=== PATIENT | female | born 1935 | race Caucasian/White ===

== ENCOUNTER 2017-06-17 08:45 | Inpatient (IN) | payer MEDICARE, OTHER ==
[~2017-06-17] VITALS: Ht 157.5 cm; Wt 68.0 kg
[~2017-06-17 08:45] MED LIST: ACET500C43 PO; CITA20TA11 PO; LISI-694 PO; SIMV20TA6 PO
[2017-06-17 08:49] VITALS: BP_SYST 194
--- NOTE | 2017-06-17 08:55 | NUR ---
Pt ambulated to bed 8, Dr Boyd is at bedside examining patient.
--- NOTE | 2017-06-17 08:57 | NUR ---
PT AAOX4, ABLE TO VERBALIZE NEEDS. PT STATES WHILE AT HOME, SHE FELL OFF THE BOTTOM STAIR AND LANDED ON HER LEFT SHOULDER. PT DENIES HITTING HEAD DURING FALL. PT C/O 9/10 PAIN TO LEFT SHOULDER AND HAS DIFFICULTY MOVING LEFT ARM AT THIS TIME. NO OTHER COMPLAINTS/INJURIES PER PT OR NOTED.
--- NOTE | 2017-06-17 08:59 | NUR ---
ER at bedside examining patient.
[2017-06-17] MEDS ORDERED: MORPHINE 2 MG/ML INJ. SYRINGE IVP ONE (09:00)
[2017-06-17] MEDS ORDERED: ONDANSETRON HCL 4 MG/2 ML VIAL IVP ONE (09:00)
[2017-06-17 09:27] LABS: BASOPHILS % (AUTO) 0.3 % (0.0-2.0); EOSINOPHILS % (AUTO) 0.1 % (0.0-4.0); HEMATOCRIT 37.8 % (36-48); HEMOGLOBIN 12.1 g/dL (12.0-16.0); LYMPHOCYTES # (AUTO) 1.8 K/uL (1.0-5.5); LYMPHOCYTES % (AUTO) 11.1 % (20.5-51.5); MEAN CORPUSCULAR HEMOGLOBIN 27 pg (27-31); MEAN CORPUSCULAR HGB CONC 32 % (32-36); MEAN CORPUSCULAR VOLUME 84 fL (79.0-98.0); MONOCYTES # (AUTO) 0.7 K/uL (0.0-1.0); MONOCYTES % (AUTO) 4.3 % (1.7-9.3); PLATELET COUNT (AUTO) 246 K/uL (130-430); RED CELL DISTRIBUTION WIDTH 15.1 % (9.0-15.0); WHITE BLOOD COUNT (AUTO) 16.5 K/uL (4.8-10.8)
[2017-06-17 09:44] LABS: INR 0.9 (0.8-1.2); PROTHROMBIN TIME 9.6 SECS (9.5-12.5)
[2017-06-17 09:52] LABS: BILIRUBIN,URINE NEGATIVE (NEGATIVE); BLOOD, URINE NEGATIVE (NEGATIVE); CLARITY/URINE SL HAZY (CLEAR); COLOR,URINE YELLOW (YELLOW); GLUCOSE,URINE NEGATIVE (NEGATIVE); KETONES,URINE TRACE (NEGATIVE); LEUKOCYTE ESTERASE ,URINE 1+ (NEGATIVE); NITRITE, URINE NEGATIVE (NEGATIVE); PH,URINE 5.5 (5.0-8.0); PROTEIN URINE 2+ (NEGATIVE); UROBILINOGEN,URINE 0.2 (0.2-1.0)
[2017-06-17 09:52] LABS: NEUTROPHILS % (AUTO) 84.2 % (40.0-70.0)
[2017-06-17 09:59] LABS: BACTERIA,URINE FEW /HPF (None Seen); MUCUS,URINE 1+ /LPF (None Seen); RBC,URINE 0-3 /HPF (0-3)
[2017-06-17 10:16] LABS: ANION GAP 12 (5-15); CALCIUM 9.6 mg/dL (8.4-11.0); CHLORIDE 105 mmol/L (98-107); CREATININE 1.47 mg/dL (0.55-1.30); GLUCOSE 116 mg/dL (70-99); POTASSIUM 5.1 mmol/L (3.5-5.1); SODIUM SERUM 137 mmol/L (136-145); UREA NITROGEN, BLOOD 45 mg/dL (8-21)
[2017-06-17 10:22] LABS: ALANINE AMINOTRANSFERASE 12 U/L (12-78); ALBUMIN 3.5 g/dL (3.4-4.8); ASPARTATE AMINOTRANSFERASE 11 U/L (10-37); TOTAL BILIRUBIN 0.4 mg/dL (0.0-1.0)
[2017-06-17] MEDS ORDERED: BACL10TA PO (10:42)
[2017-06-17] MEDS ORDERED: MED4 PO (10:42)
--- NOTE | 2017-06-17 11:16 | NUR ---
Patient will be admitted to care of DR EAST. Admitted to MEDSURG unit. Will go to room 124A. Belongings list completed. Summary report printed. Report will be given at bedside.
--- NOTE | 2017-06-17 11:39 | NUR ---
Admission Note Received patient from ER with diagnosis of LEFT HUMERAL FRACTURE . Initial Plan of Care discussed-patient verbalized understanding. Family at bedside. Oriented to room, call light, pain management and safety.
[2017-06-17 11:40] VITALS: BP_SYST 186
[2017-06-17] MEDS ORDERED: cloNIDine HCL 0.1 MG TABLET PO PRN (12:00)
[2017-06-17] MEDS ORDERED: MAGNESIUM SULFATE 50 ML IV PRN (12:00)
[2017-06-17] MEDS ORDERED: ACETAMINOPHEN 325 MG TABLET PO PRN (12:00)
[2017-06-17] MEDS ORDERED: DOCUSATE SODIUM 100 MG CAPSULE PO PRN (12:00)
[2017-06-17] MEDS ORDERED: POTASSIUM CHLORIDE 20 MEQ TAB.PRT.SR PO PRN (12:00)
[2017-06-17] MEDS ORDERED: ONDANSETRON HCL 4 MG/2 ML VIAL IVP PRN (12:00)
[2017-06-17] MEDS ORDERED: methylPREDNISolone 4 MG TABLET PO SCH (12:00)
[2017-06-17] MEDS ORDERED: MORPHINE 2 MG/ML INJ. SYRINGE IVP PRN (12:00)
[2017-06-17] MEDS ORDERED: LORazepam 2 MG/ML VIAL IVP PRN (12:00)
[2017-06-17] MEDS ORDERED: MUPIROCIN 2% TOPICAL OINTMENT 22 GM NS PRN (12:00)
--- NOTE | 2017-06-17 12:00 | NUR ---
TRANSFER OF CARE REPORT IS RECEIVED FROM ADMISSION NURSE AND CARE IS ENDORSED TO MYSELF. PT IS RECEIVED AWAKE, ALERT, AND ORIENTED X4. PT COMPLAINS OF PAIN IN THE LEFT ARM. LEFT ARM IS CURRENTLY IN AN ARM SLING. INFORMATION WAS UPDATED ON WHITE BOARD AND PT WAS SHOWN HOW TO CONTACT THE NURSING STAFF. DAUGHTER IS TAKING HER PERSONAL BELONGING HOME. DR. EAST HAS SEEN PT AND HAS DONE THE MEDREC. BED IS AT LOWEST POSITION, CALL LIGHT WITHIN REACH, TWO SIDE RAILS UP, BED ALARM IS ON. WILL CONTINUE TO MONITOR.
[2017-06-17] MEDS: METOPROLOL TARTRATE 25 MG TABLET PO SCH ×2 (12:22→21:44)
[2017-06-17] MEDS: MORPHINE 2 MG/ML INJ. SYRINGE IVP PRN ×3 (12:59→21:48)
[2017-06-17] MEDS ORDERED: cefTRIAXone 1 GM in D5W 50 ML IV ONE (13:00)
--- NOTE | 2017-06-17 13:00 | NUR ---
PRN MORPHINE GAVE PT MORPHINE FOR PAIN LEVEL OF 7 OUT 10. ADVISED PT OF INCREASE RISK FOR FALLS AND THE NEED TO USE CALL LIGHT IF SHE WANTS TO GET OUT OF BED. WILL CONTINUE TO MONITOR.
[2017-06-17] MEDS: NACL 0.9% 1,000 ML IV SCH (13:04)
--- NOTE | 2017-06-17 13:50 | NUR ---
ORTHO CONSULT WAS CALLED TO DR DIAZ, RE: L HUMERUS NECK FRACTURE. DR DIAZ WILL CALL BACK FOR HE KNOWS THAT IS IS NOT THE CAPTAIN/AIRLINE PILOT ORTHO THIS PM
[2017-06-17 14:20] VITALS: BP_SYST 140
--- NOTE | 2017-06-17 14:20 | NUR ---
ROUNDS LATE ENTRY DUE TO PT CARE: PT IS AWAKE AND ALERT. NO SIGNS OR SYMPTOMS OF DISTRESS OR SOB NOTED. PT STATES CURRENT PAIN LEVEL IS AT A 4 OUT OF 10 AND IT IS TOLERABLE. BLOOD PRESSURE IS GOING DOWN AND IS CURRENTLY AT 140/78. CURRENT NEEDS ARE MET. BED IS AT LOWEST POSITION, CALL LIGHT IS WITHIN REACH, TWO SIDE RAILS UP, BED ALARM IS ON. WILL CONTINUE TO MONITOR.
--- NOTE | 2017-06-17 16:15 | NUR ---
ROUNDS LATE ENTRY DUE TO PT CARE: PT IS SLEEPING BUT IS EASILY AWAKEN. NO SIGNS OR SYMPTOMS OF DISTRESS OR SOB NOTED. CURRENT NEEDS ARE MET. BED IS AT LOWEST POSITION, CALL LIGHT IS WITHIN REACH, TWO SIDE RAILS UP, BED ALARM IS ON. WILL CONTINUE TO MONITOR.
[2017-06-17] MEDS ORDERED: LEVO100T9 PO (17:37)
[2017-06-17 18:39] VITALS: BP_SYST 146
--- NOTE | 2017-06-17 18:53 | NUR ---
CLOSING NOTE PT IS RESTING IN BED. NO SIGNS OR SYMPTOMS OF DISTRESS OR SOB NOTED. PT IS COMPLAINING OF PAIN IN LEFT ARM WHEN SHE MOVES IT, I ADVISED PT THAT PAIN MEDICATION IS NOT DUE YET AND SHE STATED THAT IT WAS OKAY AND WOULD WAIT. CURRENT NEEDS ARE MET. BED IS AT LOWEST POSITION, CALL LIGHT WITHIN REACH, TWO SIDE RAILS UP. WILL CONTINUE TO MONITOR UNTIL CARE IS ENDORSED TO BELT SANDER STONE NURSE.
--- NOTE | 2017-06-17 19:20 | NUR ---
RN Opening Note: Report received from GEORGE Childs. Pt presented in NAD, sitting up in bed. Arm sling noted on LUE. Pt watching TV. Call light within reach, bed in lowest position with brake on. Fall precautions in effect. Pt advised to call for help prior to getting OOB. Pt agreed. Will continue to monitor.
[2017-06-17 20:30] VITALS: BP_SYST 135
--- NOTE | 2017-06-17 20:30 | NUR ---
RN Note: VSS. Assessment completed. IVF infusing without problems. Site without s/s of infiltration. Pt c/o pain in left shoulder 8/10 on a 0 -10 scale. Fall precautions in effect. Will continue to monitor.
[2017-06-17] MEDS ORDERED: BACLOFEN 10 MG TABLET PO SCH (21:00)
[2017-06-17] MEDS ORDERED: ZOLPIDEM TARTRATE 5 MG TABLET PO PRN (21:00)
--- NOTE | 2017-06-17 21:00 | NUR ---
IV infiltration: Pt got OOB without calling for assistance. Back in bed now. IV infiltrated. IV removed with angiocath intact. Restarted on first attempt in LFA 20g. IVF resumed without problems. Pt tomas procedure well. Reinterated need for pt to call for assistance and wait for help getting OOB. Will continue to monitor.
[2017-06-17] MEDS: DIAMOX SEQUELS 500 MG CAPSULE.SA PO SCH (21:40)
[2017-06-17] MEDS: HEPARIN SODIUM,PORCINE 5000 UNITS/ML VIAL SUBCUT SCH (21:42)
--- NOTE | 2017-06-17 23:30 | NUR ---
RN Note: Pt resting comfortably with eyes closed. Resp even and unlabored. NAD. Will continue to monitor.
[2017-06-18 00:12] VITALS: BP_SYST 122
--- NOTE | 2017-06-18 01:28 | NUR ---
RN Note: Pt resting without distress. Resp easy and even. IVF infusing well. Site benign. Will continue to monitor.
--- NOTE | 2017-06-18 02:40 | NUR ---
RN note: Pt discovered OOB by herself. Pt cautioned to call for help so that she won't fall again. Pt stated she didn't want to bother us. Pt told this is why we are here, to help. Pt escorted to bathroom and back. Will continue to closely monitor.
[2017-06-18] MEDS: NACL 0.9% 1,000 ML IV SCH (03:30)
[2017-06-18 06:05] LABS: ANION GAP 9 (5-15); CALCIUM 7.4 mg/dL (8.4-11.0); CHLORIDE 110 mmol/L (98-107); CREATININE 1.37 mg/dL (0.55-1.30); GLUCOSE 96 mg/dL (70-99); POTASSIUM 4.3 mmol/L (3.5-5.1); SODIUM SERUM 142 mmol/L (136-145); UREA NITROGEN, BLOOD 39 mg/dL (8-21)
--- NOTE | 2017-06-18 06:17 | NUR ---
RN Closing Note: Pt asleep without distress. IvF continues to infuse without problems. Site benign. Appears comfortable.Call light within reach. Bed in lowest position with brake on. Belongings close by. Will endorse pt to oncoming shift for continuity of care. .
[2017-06-18 06:36] LABS: BASOPHILS % (AUTO) 0.5 % (0.0-2.0); EOSINOPHILS # (AUTO) 0.2 K/uL (0.0-0.4); EOSINOPHILS % (AUTO) 1.8 % (0.0-4.0); HEMATOCRIT 32.1 % (36-48); LYMPHOCYTES # (AUTO) 2.4 K/uL (1.0-5.5); LYMPHOCYTES % (AUTO) 25.8 % (20.5-51.5); MEAN CORPUSCULAR HEMOGLOBIN 27 pg (27-31); MEAN CORPUSCULAR HGB CONC 31 % (32-36); MEAN CORPUSCULAR VOLUME 86 fL (79.0-98.0); MONOCYTES # (AUTO) 0.9 K/uL (0.0-1.0); MONOCYTES % (AUTO) 9.8 % (1.7-9.3); NEUTROPHILS # (AUTO) 5.6 K/uL (1.8-7.7); NEUTROPHILS % (AUTO) 62.1 % (40.0-70.0); PLATELET COUNT (AUTO) 195 K/uL (130-430); RED BLOOD CELL COUNT(AUTO) 3.75 MIL/uL (4.2-6.2); RED CELL DISTRIBUTION WIDTH 16.1 % (9.0-15.0)
[2017-06-18 06:50] LABS: WHITE BLOOD COUNT (AUTO) 9.1 K/uL (4.8-10.8)
--- NOTE | 2017-06-18 07:45 | NUR ---
OPENING NOTE PATIENT AWAKE ALERT, IN NO DISTRESS, DENIES ANY CHEST PAIN/ SHORTNESS OF BREATH. CALL LIGHT WITHIN REACH. SAFETY PRECAUTIONS OBSERVED. WILL CONTINUE TO MONITOR.
[2017-06-18 08:00] VITALS: BP_SYST 147
--- NOTE | 2017-06-18 08:37 | NUR ---
Nutrition Update Akshat Scale 18 noted. Pt admitted for Left Humeral Fracture Diet: Cardiac Low Cholesterol Low Fat 2gm Na diet BMI: 27.4 kg/m2 RD to follow per nutrition care standards.
[2017-06-18] MEDS ORDERED: CITALOPRAM HYDROBROMIDE 20 MG TABLET PO SCH (09:00)
[2017-06-18] MEDS ORDERED: cefTRIAXone 1 GM in D5W 50 ML IV SCH (09:00)
[2017-06-18] MEDS ORDERED: SIMVASTATIN 20 MG TABLET PO SCH (09:00)
[2017-06-18] MEDS: METOPROLOL TARTRATE 25 MG TABLET PO SCH (09:39)
[2017-06-18] MEDS: DIAMOX SEQUELS 500 MG CAPSULE.SA PO SCH (09:41)
[2017-06-18] MEDS: HEPARIN SODIUM,PORCINE 5000 UNITS/ML VIAL SUBCUT SCH (09:43)
--- NOTE | 2017-06-18 10:00 | NUR ---
PATIENT RESTING: Patient resting quietly. No acute distress noted. Vital signs within normal range.
[2017-06-18] MEDS ORDERED: METH4TAB3 PO (11:42)
[2017-06-18] MEDS ORDERED: TRAM50TA92 PO (11:42)
[2017-06-18] MEDS ORDERED: DOCU-144 PO (11:42)
[2017-06-18] MEDS ORDERED: NITR-85 PO (11:44)
[2017-06-18 11:56] VITALS: BP_SYST 107
--- NOTE | 2017-06-18 11:56 | NUR ---
DCP. ELINOR TERRAZAS 1935 ADMITTED TO [facility] ON 06/17/2017. DX MECHANICAL FALL. LEFT HUMERAL HEAD AND NECK FRACTURE. SLING IN PLACED. DTR CHARAN TERRAZAS AT BEDSIDE. PT. IS IND WITH ADLS PRIOR TO ADMISSION. NO DME. AWAITING DR DIAZ FOR EVAL. DCP. PLAN TO DC HOME WITH DTR. FF UP WITH ORTHO AND PCP. PT. DECLINED CANE. SHANKAR QUIÑONES RN/ T [phone]
[2017-06-18 11:59] VITALS: BP_SYST 168
--- NOTE | 2017-06-18 12:30 | NUR ---
PRN MED BLOOD PRESSURE WAS -168/77 PRN CATAPRESS GIVEN AT THIS TIME
--- NOTE | 2017-06-18 14:20 | NUR ---
D/C Patient Patient given medication reconciliation form and D/C instructions. Exit Care provided. Patient verbalized understanding. MD discussed with patient the results and treatment provided. Wayne left on wheelchair with product marketing analyst. Patient in stable condition, ID band removed. IV catheter removed, intact and dressing applied, no active bleeding. Rx given. Patient educated on pain management. All belongings sent with patient.
== END 2017-06-18 14:20 | disposition home or self-care (01) | DRG 871 ==
LOC: SED 08:45 → SMU 10:39
PROVIDERS: ADMIT General Practice; ATTEND Internal Medicine Hospice and Palliative Medicine
DX: A41.9 Sepsis, unspecified organism (principal); N17.0 Acute kidney failure with tubular necrosis; N39.0 Urinary tract infection, site not specified; S42.212A Unspecified displaced fracture of surgical neck of left humerus, initial encounter for closed fracture; W01.0XXA Fall on same level from slipping, tripping and stumbling without subsequent striking against object, initial encounter; I10 Essential (primary) hypertension; H40.9 Unspecified glaucoma; F17.210 Nicotine dependence, cigarettes, uncomplicated; H54.62 Unqualified visual loss, left eye, normal vision right eye; E78.00 Pure hypercholesterolemia, unspecified; Y93.01 Activity, walking, marching and hiking; Z85.528 Personal history of other malignant neoplasm of kidney; Y92.89 Other specified places as the place of occurrence of the external cause; Y99.8 Other external cause status; Z90.5 Acquired absence of kidney; Z79.899 Other long term (current) drug therapy
CPT/HCPCS: 36415; 73030; 80048; 80053; 81000-TC; 83735-TC; 85025; 85610-TC; 85730-TC; 87086; 96374; 96375; 99285; J0696; J1644; J2270; J2405; J7030; J7060

== ENCOUNTER 2018-07-13 16:52 | Emergency (ER) | payer OTHER ==
[~2018-07-13] VITALS: Ht 157.5 cm; Wt 72.6 kg
[~2018-07-13 16:52] MED LIST changes: +BACL10TA PO; -CITA20TA11 PO; +CITA20TA16 PO; +DOCU-144 PO; +LEVO100T9 PO; +MED4 PO; +METH4TAB3 PO; +NITR-85 PO; +TRAM50TA92 PO
[2018-07-13 16:55] VITALS: BP_SYST 177
--- NOTE | 2018-07-13 16:55 | NUR ---
BROUGHT IN BY [facility], PLACED IN BED #1 AND TRIAGED. REPORT GIVEN TO ITZEL
--- NOTE | 2018-07-13 17:15 | NUR ---
Pt states she fell off a stool at home and hurt her right shoulder. Pt states that she also had an injury on left shoulder that has not completely healed. Pulses present bilaterally, no obvious deformities noted. Pt arrive with sling in place and IV 18G on left hand. No other complaints or injuries per pt or noted.
--- NOTE | 2018-07-13 17:30 | NUR ---
ER Dr. Ramirez at bedside examining patient.
[2018-07-13] MEDS ORDERED: DIPHENHYDRAMINE INJ 50 MG/ML VIAL IVP ONE (17:45)
[2018-07-13] MEDS ORDERED: MORPHINE 2 MG/ML INJ. SYRINGE IVP ONE (17:45)
[2018-07-13] MEDS ORDERED: MORPHINE 4 MG/ML INJ. SYRINGE ONE (18:23)
--- NOTE | 2018-07-13 18:50 | NUR ---
Applied sling to right arm after medicating and provided education. Pt and family verbalize understanding and return demonstration.
[2018-07-13 19:02] VITALS: BP_SYST 150
--- NOTE | 2018-07-13 19:02 | NUR ---
Patient given written and verbal discharge instructions and verbalizes understanding. ER MD discussed with patient the results and treatment provided. Patient in stable condition. ID arm band removed. IV catheter removed intact and dressing applied, no active bleeding. Rx of norco given. Patient educated on pain management and to follow up with PMD. Pain Scale 3/10. Opportunity for questions provided and answered. Medication side effect fact sheet provided.
--- NOTE | 2018-07-13 20:19 | NUR ---
Note undone in EDM - 07/13/18 at 2020 by MARY ANN Patient given written and verbal discharge instructions and verbalizes understanding. ER MD discussed with patient the results and treatment provided. Patient in stable condition. ID arm band removed. IV catheter removed intact and dressing applied, no active bleeding. Rx of jaylyn given. Patient educated on pain management and to follow up with PMD. Pain Scale 3/10. Opportunity for questions provided and answered. Medication side effect fact sheet provided.
== END 2018-07-13 19:02 | disposition home or self-care (01) ==
LOC: SED 16:52
DX: S42.291A Other displaced fracture of upper end of right humerus, initial encounter for closed fracture (principal); E07.9 Disorder of thyroid, unspecified; E78.00 Pure hypercholesterolemia, unspecified; I10 Essential (primary) hypertension; Z79.899 Other long term (current) drug therapy; Z85.528 Personal history of other malignant neoplasm of kidney; W17.89XA Other fall from one level to another, initial encounter; Y93.89 Activity, other specified; Y92.89 Other specified places as the place of occurrence of the external cause; Y99.8 Other external cause status
CPT/HCPCS: 73030; 96374; 96375; 99283; J1200; J2270

== ENCOUNTER 2020-03-28 14:45 | Emergency (ER) | payer OTHER ==
[~2020-03-28] VITALS: Ht 157.5 cm; Wt 68.0 kg
[~2020-03-28 14:45] MED LIST changes: +SIMV-43 PO; -SIMV20TA6 PO
[2020-03-28 15:00] VITALS: BP_SYST 134
[2020-03-28 17:18] VITALS: BP_SYST 134
== END 2020-03-28 17:19 | disposition home or self-care (01) ==
LOC: SED 14:45
DX: S00.83XA Contusion of other part of head, initial encounter (principal); E78.00 Pure hypercholesterolemia, unspecified; I10 Essential (primary) hypertension; E07.9 Disorder of thyroid, unspecified; Z79.899 Other long term (current) drug therapy; W01.0XXA Fall on same level from slipping, tripping and stumbling without subsequent striking against object, initial encounter; Y93.89 Activity, other specified; Y92.89 Other specified places as the place of occurrence of the external cause; Y99.8 Other external cause status
CPT/HCPCS: 70450-TC; 76376; 99284

== ENCOUNTER 2021-06-09 08:04 | Observation (INO) | payer OTHER, SELFPAY ==
[~2021-06-09] VITALS: Ht 162.6 cm; Wt 55.8 kg
[~2021-06-09 08:04] MED LIST changes: -LISI-694 PO; +LISI10TA30 PO
[2021-06-09 08:17] VITALS: BP_SYST 145
--- NOTE | 2021-06-09 08:24 | NUR ---
Pt to bed 3. Pt c/o falling last night due to losing her balance. States she normally uses a walker but did not use a walker last night so she fell. No pt has Left Hip Pain 8/10 non-radiating. Pt allergic to Amoxiciilin. Hx of Alzheimers and Osteoperosis. A&Ox2. Pt has memory problems and is forgetful. Cannot ambulate, connected to manager cardiac cath and side rails up. VSS.
--- NOTE | 2021-06-09 08:29 | NUR ---
pt biba from assisting living, a/ox 2 c/p fall last night.Pt placed in bed 3. Non ambulatory this time patient normally uses a walker but did not use a walker last night so she fell. Report Hip Pain 8/10 non-radiating. Pt allergic to Amoxiciilin. Hx of Alzheimers and Osteoperosis. A&Ox2. Pt has memory problems and is forgetful. Cannot ambulate, connected to cardiac nurse practitioner and side rails up. VSS.
--- NOTE | 2021-06-09 09:02 | NUR ---
AWAITING CT AND XRAY
--- NOTE | 2021-06-09 10:03 | NUR ---
pt back from ct scan , daughter t the bed side
--- NOTE | 2021-06-09 10:48 | NUR ---
PT URINATED TO BED , CHANGED T0 CLEAN SHEETS . PT NOT ABLE TO USE BP DUE TO PAIN WHEN MOVING
--- NOTE | 2021-06-09 13:34 | NUR ---
BLOOD DRAWN , CECILLE SWABBED AND SENT [facility]. PT PROVIDED URINE BEDPAN. PT URINATED . FAMILY AT THE BED SIDE, VSS AND RECORDED , NAD , NO ORDERS AT THIS TIME
[2021-06-09 13:44] LABS: BASOPHILS % (AUTO) 0.6 % (0.0-2.0); EOSINOPHILS # (AUTO) 0.2 K/uL (0.0-0.4); EOSINOPHILS % (AUTO) 2.7 % (0.0-4.0); HEMATOCRIT 32.2 % (36-48); HEMOGLOBIN 10.3 g/dL (12.0-16.0); LYMPHOCYTES # (AUTO) 1.6 K/uL (1.0-5.5); LYMPHOCYTES % (AUTO) 23.4 % (20.5-51.5); MEAN CORPUSCULAR HEMOGLOBIN 26 pg (27-31); MEAN CORPUSCULAR HGB CONC 32 % (32-36); MEAN CORPUSCULAR VOLUME 81 fL (79.0-98.0); MONOCYTES # (AUTO) 0.6 K/uL (0.0-1.0); MONOCYTES % (AUTO) 8.7 % (1.7-9.3); NEUTROPHILS # (AUTO) 4.4 K/uL (1.8-7.7); NEUTROPHILS % (AUTO) 64.6 % (40.0-70.0); PLATELET COUNT (AUTO) 178 K/uL (130-430); RED BLOOD CELL COUNT(AUTO) 3.96 MIL/uL (4.2-6.2); RED CELL DISTRIBUTION WIDTH 18.5 % (9.0-15.0); WHITE BLOOD COUNT (AUTO) 6.7 K/uL (4.8-10.8)
[2021-06-09 13:52] LABS: ANION GAP 7 (5-15); CALCIUM 8.6 mg/dL (8.4-11.0); CHLORIDE 108 mmol/L (98-107); CREATININE 1.58 mg/dL (0.55-1.30); GLUCOSE 90 mg/dL (70-99); POTASSIUM 5.4 mmol/L (3.5-5.1); SODIUM SERUM 140 mmol/L (136-145); UREA NITROGEN, BLOOD 30 mg/dL (8-21)
[2021-06-09 14:00] LABS: ALANINE AMINOTRANSFERASE 17 U/L (12-78); ALBUMIN 3.1 g/dL (3.4-4.8); ASPARTATE AMINOTRANSFERASE 8 U/L (10-37); TOTAL BILIRUBIN 0.6 mg/dL (0.0-1.0)
[2021-06-09] MEDS ORDERED: DOCUSATE SODIUM 100 MG CAPSULE PO PRN (15:15)
[2021-06-09] MEDS ORDERED: MORPHINE 4 MG INJ. 4 MG/ML VIAL IVP PRN (15:15)
[2021-06-09] MEDS ORDERED: MORPHINE 2 MG/ML INJ. SYRINGE IVP PRN (15:15)
[2021-06-09] MEDS ORDERED: ONDANSETRON HCL 4 MG/2 ML VIAL IVP PRN (15:15)
[2021-06-09] MEDS ORDERED: METOCLOPRAMIDE HCL 10 MG/2 ML VIAL IVP PRN (15:15)
[2021-06-09] MEDS ORDERED: ACETAMINOPHEN 325 MG TABLET PO PRN (15:15)
--- NOTE | 2021-06-09 16:15 | NUR ---
ATTEMPTED TO CALL TO CHARGE NURSE FOR PT'S ADMISSION, CHARGE UNAVAILABLE
--- NOTE | 2021-06-09 17:28 | NUR ---
REPORT GIVEN TO GEORGE BURNS , ALL QUESTIONS ANSWERED. PT WILL GO TO ROOM 105 A
--- NOTE | 2021-06-09 17:59 | NUR ---
CONSULTATION PAGED/CALLED Reason for Consultation: [] pelvic pain Person Who was Notified: [] dr DARLING Consulting Physician: [] DR ENRIKE DARLING Time Study Observer Specialty: [] ORTHO Ordering Physician: [] DR GABRIEL
--- NOTE | 2021-06-09 18:05 | NUR ---
ADMISSION NOTE Received patient from ER via gurney. Patient admitted with diagnosis of PELVIC PAIN. Patient is awake, alert, oriented X 4. Patient oriented to hospital room, call light, toileting, pain management and safety-teach back done. Patient informed that Adeline Oreilly will be her registered nurse and that their room number is 105A. Personal belongings checked and Belongings List documented. Call light within reach.
[2021-06-09 18:46] VITALS: BP_SYST 110
--- NOTE | 2021-06-09 19:10 | NUR ---
CLOSING NOTES: PATIENT RESTING IN BED. NO X/X OF ACUTE DISTRESS NOTED. FALL, SAFETY AND ASPIRATION MEASURES PROVIDED. NEEDS MET THROUGHOUT SHIFT.
--- NOTE | 2021-06-09 19:25 | NUR ---
OPENING NOTES/ROUNDS RECEIVED REPORT FROM AM NURSE. RECEIVED PT RESTING IN BED, RESP. EVEN AND UNLABORED, TO RA. BED LOCKED AND IN LOW POSITION. CALL LIGHT WITHIN PT REACH, BED ALARM ON. NOTED PT WITH SOME LEVEL OF CONFUSION. DAUGHTER AT BED SIDE, PT STILL NEED TO BE ORIENTED TO ROOM. REALITY AWARENESS OFFERED, PT EAGER TO GET OUT OF BED. VITAL SIGNS WNL, PT SATING 100% ON RA.
[2021-06-09] MEDS ORDERED: SIMVASTATIN 20 MG TABLET PO SCH (21:00)
[2021-06-09] MEDS ORDERED: BACLOFEN 10 MG TABLET PO SCH (21:00)
[2021-06-09] MEDS: DIAMOX SEQUELS 500 MG CAPSULE.SA PO SCH (22:27)
[2021-06-09 23:14] VITALS: BP_SYST 130
[2021-06-10 00:18] VITALS: BP_SYST 136
--- NOTE | 2021-06-10 04:53 | NUR ---
Nutrition Update Akshat Scale 15 noted. Pt admitted for Pelvic pain Diet: regular BMI: 21.1 kg/m2 RD to follow per nutrition care standards.
[2021-06-10] MEDS ORDERED: LEVOTHYROXINE SODIUM 0.1 MG TABLET PO SCH (07:00)
--- NOTE | 2021-06-10 07:42 | NUR ---
CLOSING NOTES PT ASLEEP IN BED, AM MEDS GIVEN, NO ASE. PT MADE COMFORTABLE, STILL CONFUSED, BUT REMAIN REDIRECTABLE. ALL SAFETY AND COMFORT MEASURES IN PLACE. BED IN LOWEST POSITION, CALL LIGHT WITHIN PT REACH. END OF SHIFT REPORT TO INCOMING NURSE.
[2021-06-10] MEDS: DIAMOX SEQUELS 500 MG CAPSULE.SA PO SCH (08:49)
[2021-06-10] MEDS ORDERED: CITALOPRAM HYDROBROMIDE 20 MG TABLET PO SCH (09:00)
[2021-06-10] MEDS ORDERED: LISINOPRIL 10 MG TABLET (PRINIVIL) PO SCH (09:00)
[2021-06-10 11:31] VITALS: BP_SYST 140
[2021-06-10 15:33] VITALS: BP_SYST 91
--- NOTE | 2021-06-10 18:30 | NUR ---
awake,confused,vss,incontinent of urine,bin care provided,needs attended,call light & personal items within pt reach safety maintained,d/c to [facility] via ambulance,report called and given to nurse floyd in [facility] by phone.son maggy and daughter milvia visited at bedside and notified of d/c.pt and family agreed of d/c disposition d/c IV prior to discharge.
[2021-06-10] MEDS ORDERED: ENOXAPARIN SODIUM 40 MG/0.4 ML SYRINGE SUBCUT SCH (21:00)
== END 2021-06-10 18:30 ==
LOC: SED 08:04 → INTOOBSV 13:49 → STU 13:49 → SMU 17:07
PROVIDERS: ADMIT Internal Medicine Hospice and Palliative Medicine; ATTEND Internal Medicine Hospice and Palliative Medicine
DX: S32.592A Other specified fracture of left pubis, initial encounter for closed fracture (principal); Z20.822 Contact with and (suspected) exposure to COVID-19; I10 Essential (primary) hypertension; G30.9 Alzheimer's disease, unspecified; F02.80 Dementia in other diseases classified elsewhere, unspecified severity, without behavioral disturbance, psychotic disturbance, mood disturbance, and anxiety; M81.0 Age-related osteoporosis without current pathological fracture; E78.00 Pure hypercholesterolemia, unspecified; K21.9 Gastro-esophageal reflux disease without esophagitis; E07.9 Disorder of thyroid, unspecified; F17.200 Nicotine dependence, unspecified, uncomplicated; W18.30XA Fall on same level, unspecified, initial encounter; Y93.89 Activity, other specified; Y92.89 Other specified places as the place of occurrence of the external cause; Y99.8 Other external cause status; Z85.53 Personal history of malignant neoplasm of renal pelvis; Z88.1 Allergy status to other antibiotic agents
CPT/HCPCS: 36415; 70450; 72192; 73502; 76376; 80053; 85025; 87426; 99285; G0378

== ENCOUNTER 2021-08-17 17:00 | Inpatient (IN) | payer OTHER ==
[~2021-08-17] VITALS: Ht 165.1 cm; Wt 67.3 kg
[~2021-08-17 17:00] MED LIST changes: -MED4 PO; -METH4TAB3 PO; -NITR-85 PO
[2021-08-17 17:10] VITALS: BP_SYST 156
--- NOTE | 2021-08-17 17:15 | NUR ---
Patient to ER bed 3 to gown for evaluation. Side rails up. Report given to ELISA VAZQUEZ.
--- NOTE | 2021-08-17 17:30 | NUR ---
ER at bedside examining patient.
--- NOTE | 2021-08-17 17:35 | NUR ---
PT BIB DAUGHTER FOR SHAKING AND STATING SHE IS COLD. PER DAUGHTER PT HAS ALSO BEEN MORE CONFUSED THAN NORMAL OVER THE LAST 2 DAYS. PT HAS HX OF DEMENTIA, AOX2. 02 SAT DECREASING, PLACED ON SIMPLE MASK AT 3LPM, 02 96%.
--- NOTE | 2021-08-17 17:40 | NUR ---
Nuvia nelson in ED - 08/17/21 at 1822 by [email or web address] JORDI CRAIG AT THE BEDSIDE EXAMINING PT
--- NOTE | 2021-08-17 18:20 | NUR ---
Patient transported to radiology via GURNEY, accompanied by STAFF.
[2021-08-17 18:34] LABS: BASOPHILS # (AUTO) 0.1 K/uL (0.0-0.2); BASOPHILS % (AUTO) 0.9 % (0.0-2.0); EOSINOPHILS # (AUTO) 0.1 K/uL (0.0-0.4); EOSINOPHILS % (AUTO) 1.4 % (0.0-4.0); HEMATOCRIT 30.1 % (36-48); HEMOGLOBIN 9.9 g/dL (12.0-16.0); LYMPHOCYTES # (AUTO) 1.5 K/uL (1.0-5.5); LYMPHOCYTES % (AUTO) 16.8 % (20.5-51.5); MEAN CORPUSCULAR HEMOGLOBIN 27 pg (27-31); MEAN CORPUSCULAR HGB CONC 33 % (32-36); MEAN CORPUSCULAR VOLUME 82 fL (79.0-98.0); MONOCYTES # (AUTO) 0.4 K/uL (0.0-1.0); MONOCYTES % (AUTO) 4.9 % (1.7-9.3); NEUTROPHILS # (AUTO) 6.9 K/uL (1.8-7.7); PLATELET COUNT (AUTO) 314 K/uL (130-430); RED BLOOD CELL COUNT(AUTO) 3.67 MIL/uL (4.2-6.2); RED CELL DISTRIBUTION WIDTH 16.7 % (9.0-15.0); WHITE BLOOD COUNT (AUTO) 9.1 K/uL (4.8-10.8)
--- NOTE | 2021-08-17 18:35 | NUR ---
# 20 gauge angiocath placed to LFA. Use of asceptic technique. Opsite placed over site. Blood return noted. Blood for lab drawn from site. Flushed with 10 cc of normal saline. No evidence of infiltration noted. Patient tolerated well.
[2021-08-17 18:44] LABS: ANION GAP 8 (5-15); CALCIUM 8.8 mg/dL (8.4-11.0); CHLORIDE 106 mmol/L (98-107); CREATININE 2.67 mg/dL (0.55-1.30); GLUCOSE 102 mg/dL (70-99); POTASSIUM 4.9 mmol/L (3.5-5.1); SODIUM SERUM 136 mmol/L (136-145); UREA NITROGEN, BLOOD 50 mg/dL (8-21)
[2021-08-17] MEDS ORDERED: LORazepam 2 MG/ML VIAL IVP ONE (18:45)
[2021-08-17 18:46] LABS: C-REACTIVE PROTEIN QUANT 11.6 mg/dL (0-0.5)
[2021-08-17 18:50] LABS: ALANINE AMINOTRANSFERASE 9 U/L (12-78); ALBUMIN 3.2 g/dL (3.4-4.8); ASPARTATE AMINOTRANSFERASE 9 U/L (10-37); TOTAL BILIRUBIN 0.4 mg/dL (0.0-1.0)
[2021-08-17] MEDS ORDERED: LORazepam 2 MG/ML VIAL ONE (18:50)
[2021-08-17 18:55] LABS: ACETAMINOPHEN < 1 ug/mL (1-30); ALCOHOL, BLOOD < 3 mg/dL (<10)
[2021-08-17 19:08] LABS: ACETONE, SERUM NEGATIVE (NEGATIVE)
--- NOTE | 2021-08-17 19:24 | NUR ---
REPORT GIVEN TO GEORGE QUIROZ FOR CONTINUING CARE
[2021-08-17] MEDS ORDERED: NACL 0.9% 1,000 ML IV ONE (19:45)
[2021-08-17] MEDS ORDERED: ACETAMINOPHEN 325 MG TABLET PO PRN (20:00)
[2021-08-17] MEDS ORDERED: cefTRIAXone 1 GM in D5W 50 ML IV SCH (20:30)
[2021-08-17] MEDS ORDERED: LEVO25CA4 PO (20:57)
[2021-08-17] MEDS ORDERED: SIMV5TAB59 PO (20:57)
[2021-08-17] MEDS ORDERED: CYAN50LO PO (20:57)
[2021-08-17] MEDS ORDERED: LORA1POW6 PO (20:57)
[2021-08-17] MEDS ORDERED: PANT20TA2 PO (20:57)
[2021-08-17] MEDS ORDERED: PATI8.4P PO (20:58)
[2021-08-17] MEDS ORDERED: PARO12.520 PO (20:58)
[2021-08-17] MEDS ORDERED: PRO10 PO (20:58)
[2021-08-17] MEDS ORDERED: MEMA1TAB2 PO (20:58)
--- NOTE | 2021-08-17 21:00 | NUR ---
Admit bed requested Patient will be admitted to care of Dr. GABRIEL. Admitted to TELEMETRY unit. Diagnosis ENCEPHALOPATHY, RENAL FAILURE Inpatient (Yes or No) YES Observation (Yes or No) Orientation concerns or request close to nursing station (Yes or No) YES Covid Status PENDING On vent or bipap [] Isolation requirements [] Needs a sitter [] From Home (Yes or if No enter name of facility) NO , BOARD AND CARE Requires Dialysis (Yes or No) [] Med Rec Completed (Yes of No) YES
[2021-08-17] MEDS ORDERED: ACETAMINOPHEN 650 MG SUPP.RECT RC ONE ×2 (22:00→22:03)
[2021-08-17] MEDS ORDERED: ACETAMINOPHEN 325 MG SUPP.RECT RC ONE (22:03)
[2021-08-17] MEDS ORDERED: cefTRIAXone 1 GM VIAL ONE (22:18)
--- NOTE | 2021-08-17 22:20 | NUR ---
Assisting nurse peer. Only transporting pt and giving report to floor nurse.
--- NOTE | 2021-08-17 22:25 | NUR ---
Patient will be admitted to care of Dr. Mckeon. Admitted to tele unit. Will go to room 121-B . Belongings list completed. Complete and up to date summary report printed. SBAR report to be given at bedside with opportunity for questions.
--- NOTE | 2021-08-17 22:35 | NUR ---
ADMIT NOTE Received pt from ER a diagnosis of encephalopathy and renal failure . Admission process initiated. patient oriented to pain management, safety and call light-teach back done.
--- NOTE | 2021-08-17 23:10 | NUR ---
ADMISSION OF A 85 YEAR OLD FEMALE UNDER THE CARE OF DOCTOR MD HARVEY FOR ENCEPHALOPATHY/RENAL FAILURE. PATIENT ARRIVAL TO UNIT. OXYGEN IN PLACE 100% O2 ON 2.5 LITERS, DECREASED TO 1 LITER PATIENT SAID SHE HAS HISTORY OF SMOKING. HISTORY OF ALZHEIMERS DEMENTIA, RENAL DISEASE, THYROID DISEASE, CANCER, HYPERCHOLESTEROLEMIA, ANEMIA. ON EVERY 4 HOUR NEURO CHECKS FOR ALTERED LEVEL OF CONSCIOUSNESS. PATIENT URINE COLLECTION FOR URINE DRUG SCREEN X1 STRAIGHT CATH PATIENT UNABLE TO PROVIDE SAMPLE, APPROXIMATELY 150 ML OUT. PATIENT IS SHOWING SINUS RHYTHM 94 BEATS PER MINUTE ON ATTENDING AMBULATORY CARE. AVELNIA DARLING RN
[2021-08-17] MEDS: NACL 0.9% 1,000 ML IV SCH (23:12)
[2021-08-17 23:14] VITALS: BP_SYST 156
[2021-08-17 23:18] VITALS: BP_SYST 132
[2021-08-17 23:23] LABS: BILIRUBIN,URINE NEGATIVE (NEGATIVE); CLARITY/URINE CLEAR (CLEAR); COLOR,URINE YELLOW (YELLOW); GLUCOSE,URINE NEGATIVE (NEGATIVE); KETONES,URINE NEGATIVE (NEGATIVE); LEUKOCYTE ESTERASE ,URINE NEGATIVE (NEGATIVE); NITRITE, URINE NEGATIVE (NEGATIVE); PROTEIN URINE TRACE (NEGATIVE); UROBILINOGEN,URINE 0.2 (0.2-1.0)
[2021-08-17 23:29] VITALS: BP_SYST 132
[2021-08-17 23:30] LABS: BLOOD, URINE TRACE (NEGATIVE)
[2021-08-17 23:31] LABS: RBC,URINE 0-3 /HPF (0-3); WBC,URINE 0-3 /HPF (0-3)
[2021-08-17 23:32] LABS: BACTERIA,URINE RARE /HPF (None Seen)
[2021-08-17 23:34] LABS: BARBITURATE, URINE NEGATIVE (NEG <=200); BENZODIAZEPINE, URINE NEGATIVE (NEG <=150); CANNABINOID, URINE NEGATIVE (NEG <=50); COCAINE, URINE NEGATIVE (NEG <=150); METHAMPHETAMINES SCREEN,URINE NEGATIVE (NEG <=500); OPIATE, URINE POSITIVE (NEG <=100); PHENCYCLIDINE SCREEN,URINE NEGATIVE (NEG <=25); URINE AMPHETAMINE NEGATIVE (NEG <=500); URINE METHADONE NEGATIVE (NEG <=200)
[2021-08-17 23:35] LABS: UR TRICYCLIC ANTIDEPRESSANTS NEGATIVE (NEG <=300); URINE OXYCODONE SCREEN NEGATIVE (NEG <=100); URINE PROPOXYPHENE SCREEN NEGATIVE (NEG <=300)
[2021-08-18] VITALS (7 sets, daily range): BP systolic 89–144
[2021-08-18 06:35] LABS: BASOPHILS # (AUTO) 0.1 K/uL (0.0-0.2); BASOPHILS % (AUTO) 0.7 % (0.0-2.0); EOSINOPHILS # (AUTO) 0.1 K/uL (0.0-0.4); EOSINOPHILS % (AUTO) 0.7 % (0.0-4.0); HEMATOCRIT 25.5 % (36-48); HEMOGLOBIN 8.2 g/dL (12.0-16.0); LYMPHOCYTES # (AUTO) 2.1 K/uL (1.0-5.5); LYMPHOCYTES % (AUTO) 23.6 % (20.5-51.5); MEAN CORPUSCULAR HEMOGLOBIN 27 pg (27-31); MEAN CORPUSCULAR HGB CONC 32 % (32-36); MEAN CORPUSCULAR VOLUME 83 fL (79.0-98.0); MONOCYTES # (AUTO) 1.1 K/uL (0.0-1.0); MONOCYTES % (AUTO) 11.9 % (1.7-9.3); NEUTROPHILS # (AUTO) 5.6 K/uL (1.8-7.7); NEUTROPHILS % (AUTO) 63.1 % (40.0-70.0); PLATELET COUNT (AUTO) 209 K/uL (130-430); RED BLOOD CELL COUNT(AUTO) 3.07 MIL/uL (4.2-6.2); RED CELL DISTRIBUTION WIDTH 17.1 % (9.0-15.0); WHITE BLOOD COUNT (AUTO) 8.9 K/uL (4.8-10.8)
[2021-08-18 06:51] LABS: ALANINE AMINOTRANSFERASE 8 U/L (12-78); ALBUMIN 2.3 g/dL (3.4-4.8); ANION GAP 9 (5-15); ASPARTATE AMINOTRANSFERASE 9 U/L (10-37); CALCIUM 7.6 mg/dL (8.4-11.0); CHLORIDE 111 mmol/L (98-107); CREATININE 2.36 mg/dL (0.55-1.30); GLUCOSE 101 mg/dL (70-99); POTASSIUM 4.6 mmol/L (3.5-5.1); SODIUM SERUM 140 mmol/L (136-145); TOTAL BILIRUBIN 0.3 mg/dL (0.0-1.0); UREA NITROGEN, BLOOD 47 mg/dL (8-21)
[2021-08-18] MEDS ORDERED: ONDANSETRON HCL 4 MG/2 ML VIAL IVP PRN (07:15)
[2021-08-18] MEDS ORDERED: MUPIROCIN 2% TOPICAL OINTMENT 22 GM NS PRN (07:15)
[2021-08-18] MEDS ORDERED: MORPHINE 2 MG/ML INJ. SYRINGE IVP PRN ×2 (07:15)
[2021-08-18] MEDS ORDERED: NALOXONE HCL 0.4 MG/ML AMP (NARCAN) IVP PRN ×2 (07:15)
[2021-08-18] MEDS ORDERED: MAGNESIUM SULFATE 50 ML IV PRN (07:15)
[2021-08-18] MEDS ORDERED: LORazepam 2 MG/ML VIAL IVP PRN (07:15)
[2021-08-18] MEDS ORDERED: DOCUSATE SODIUM 100 MG CAPSULE PO PRN ×2 (07:15)
[2021-08-18] MEDS ORDERED: ZOLPIDEM TARTRATE 5 MG TABLET PO PRN (07:15)
[2021-08-18] MEDS ORDERED: POTASSIUM CHLORIDE 20 MEQ TAB.PRT.SR PO PRN (07:15)
[2021-08-18] MEDS ORDERED: ACETAMINOPHEN 325 MG TABLET PO PRN ×2 (07:15→07:45)
--- NOTE | 2021-08-18 07:27 | NUR ---
HANDOFF WITH GEORGE BURNS. AVELINA DARLING RN
[2021-08-18] MEDS ORDERED: LEVOTHYROXINE SODIUM 0.1 MG TABLET PO ONE (08:00)
[2021-08-18] MEDS: FLUoxetine HCL 10 MG CAPSULE (PROzac) PO SCH (09:54)
[2021-08-18] MEDS: DIAMOX SEQUELS 500 MG CAPSULE.SA PO SCH ×2 (09:54→21:39)
[2021-08-18] MEDS: HEPARIN SODIUM,PORCINE 5,000 UNITS/ML VIAL SUBCUT SCH ×2 (10:15→21:40)
[2021-08-18] MEDS: NACL 0.9% 1,000 ML IV SCH (12:40)
--- NOTE | 2021-08-18 19:28 | NUR ---
ST EVALUATION COMPLETED. ST TX NOT INDICATED AT THIS TIME. RECOMMEND CONTINUE REGULAR DIET.
[2021-08-19 00:24] VITALS: BP_SYST 133
[2021-08-19] MEDS: NACL 0.9% 1,000 ML IV SCH ×2 (00:27→12:00)
[2021-08-19] MEDS: LEVOTHYROXINE SODIUM 0.1 MG TABLET PO SCH (05:55)
--- NOTE | 2021-08-19 07:21 | NUR ---
Handoff with patient day team registered nurse, Ernestina. Nazario Allen RN
[2021-08-19 07:23] LABS: ANION GAP 12 (5-15); CALCIUM 7.9 mg/dL (8.4-11.0); CHLORIDE 113 mmol/L (98-107); CREATININE 1.97 mg/dL (0.55-1.30); GLUCOSE 103 mg/dL (70-99); POTASSIUM 4.4 mmol/L (3.5-5.1); SODIUM SERUM 142 mmol/L (136-145); UREA NITROGEN, BLOOD 42 mg/dL (8-21)
[2021-08-19 07:41] LABS: BASOPHILS # (AUTO) 0.1 K/uL (0.0-0.2); BASOPHILS % (AUTO) 0.9 % (0.0-2.0); EOSINOPHILS # (AUTO) 0.1 K/uL (0.0-0.4); EOSINOPHILS % (AUTO) 1.4 % (0.0-4.0); HEMATOCRIT 26.4 % (36-48); HEMOGLOBIN 8.3 g/dL (12.0-16.0); LYMPHOCYTES # (AUTO) 1.1 K/uL (1.0-5.5); LYMPHOCYTES % (AUTO) 17.9 % (20.5-51.5); MEAN CORPUSCULAR HEMOGLOBIN 27 pg (27-31); MEAN CORPUSCULAR HGB CONC 32 % (32-36); MEAN CORPUSCULAR VOLUME 84 fL (79.0-98.0); MONOCYTES # (AUTO) 0.9 K/uL (0.0-1.0); MONOCYTES % (AUTO) 15.3 % (1.7-9.3); NEUTROPHILS # (AUTO) 3.8 K/uL (1.8-7.7); NEUTROPHILS % (AUTO) 64.5 % (40.0-70.0); RED BLOOD CELL COUNT(AUTO) 3.13 MIL/uL (4.2-6.2); RED CELL DISTRIBUTION WIDTH 17.4 % (9.0-15.0); WHITE BLOOD COUNT (AUTO) 5.9 K/uL (4.8-10.8)
--- NOTE | 2021-08-19 07:59 | NUR ---
OPENING NOTE Patient resting in bed, no sign of distress and denies pain. Patient pulled out IV, bleeding stopped and bandage applied. Dr Lee at bedside to see patient, discussed discharge back to SNF. Safety checks made, all needs met at this time. Will continue to monitor.
[2021-08-19 08:00] VITALS: BP_SYST 128
[2021-08-19] MEDS ORDERED: AZIT500T10 PO (08:09)
[2021-08-19] MEDS ORDERED: ALBU8.5H8 INH (08:09)
[2021-08-19] MEDS: DIAMOX SEQUELS 500 MG CAPSULE.SA PO SCH ×2 (08:33→22:31)
[2021-08-19] MEDS: FLUoxetine HCL 10 MG CAPSULE (PROzac) PO SCH (08:33)
[2021-08-19] MEDS: HEPARIN SODIUM,PORCINE 5,000 UNITS/ML VIAL SUBCUT SCH ×2 (08:36→22:33)
[2021-08-19 09:32] LABS: PLATELET COUNT (AUTO) 207 K/uL (130-430)
--- NOTE | 2021-08-19 10:25 | NUR ---
ROUNDS Patient resting in bed with eyes closed. Patient aware that she is going to be discharged later today. Patient ate her breakfast with minimal assist. No sign of distress or pain at this time. Will continue to monitor.
--- NOTE | 2021-08-19 11:10 | NUR ---
SPOKE TO DAUGHTER REGARDING DISCHARGE Spoke to Rufina, patient's daughter, regarding discharge later today. Daughter states she will be transporting the patient back to her board and care via private auto and that she received notifications that the new prescriptions are ready to be picked up.
[2021-08-19 12:00] VITALS: BP_SYST 110
[2021-08-19] MEDS ORDERED: ACETAMINOPHEN 500 MG TABLET PO ONE (12:00)
--- NOTE | 2021-08-19 12:00 | NUR ---
SPOKE TO MD Spoke to Dr Lee and informed him that the patient's temperature has been increasing (99.9). MD gave new orders and instructions to monitor temperature throughout the afternoon before patient is discharged.
[2021-08-19] MEDS ORDERED: ACETAMINOPHEN 500 MG TABLET PO PRN (13:30)
[2021-08-19] MEDS ORDERED: AZITHROMYCIN 250 MG TABLET PO ONE (13:30)
--- NOTE | 2021-08-19 13:30 | NUR ---
SPOKE TO MD Spoke to Dr Lee, and informed him that patient's temperature is still slightly elevated (99.5) after receiving tylenol. New orders received, discharge held.
--- NOTE | 2021-08-19 13:30 | NUR ---
NEW IV PLACED New IV, 22g, placed in the left wrist. Patient tolerated well, prescribed fluids resumed.
--- NOTE | 2021-08-19 13:53 | NUR ---
SPOKE TO PATIENT'S DAUGHTER Spoke to Rufina, patients daughter, and updated her on the patient's discharge plan. Daughter verbalized understanding.
[2021-08-19] MEDS: cefTRIAXone 1 GM in D5W 50 ML IV SCH (15:44)
--- NOTE | 2021-08-19 16:00 | NUR ---
FAMILY AT BEDSIDE Daughter, Rufina, at bedside to see patient. Stated that patient is much more lethargic and confused than her normal baseline. Stated that she "doesnt believe her mother recognizes her and she plays along like she knows whats going on". Daughter brought the patient food and she ate a full meal.
[2021-08-19 16:03] VITALS: BP_SYST 120
--- NOTE | 2021-08-19 19:01 | NUR ---
CLOSING NOTE Patient resting in bed with eyes closed. IV is patent and running prescribed fluids. No signs of distress or pain. Safety checks made and all needs met at this time. Will endorse to slot shift supervisor nurse.
--- NOTE | 2021-08-19 19:41 | NUR ---
LEFT MESSAGE FOR DOCTOR EAST PER REQUEST OF DAY TEAM RN FOR CHEST X-RAY. AVELINA DARLING RN
[2021-08-19 20:00] VITALS: BP_SYST 124
[2021-08-20 00:36] VITALS: BP_SYST 156
[2021-08-20] MEDS: LEVOTHYROXINE SODIUM 0.1 MG TABLET PO SCH (06:05)
[2021-08-20 06:56] LABS: BASOPHILS # (AUTO) 0.1 K/uL (0.0-0.2); EOSINOPHILS # (AUTO) 0.1 K/uL (0.0-0.4); EOSINOPHILS % (AUTO) 1.9 % (0.0-4.0); HEMATOCRIT 30.1 % (36-48); HEMOGLOBIN 9.4 g/dL (12.0-16.0); LYMPHOCYTES # (AUTO) 0.9 K/uL (1.0-5.5); LYMPHOCYTES % (AUTO) 18.3 % (20.5-51.5); MEAN CORPUSCULAR HEMOGLOBIN 27 pg (27-31); MEAN CORPUSCULAR HGB CONC 31 % (32-36); MEAN CORPUSCULAR VOLUME 85 fL (79.0-98.0); MONOCYTES # (AUTO) 0.5 K/uL (0.0-1.0); MONOCYTES % (AUTO) 10.8 % (1.7-9.3); NEUTROPHILS # (AUTO) 3.4 K/uL (1.8-7.7); PLATELET COUNT (AUTO) 168 K/uL (130-430); RED BLOOD CELL COUNT(AUTO) 3.53 MIL/uL (4.2-6.2); RED CELL DISTRIBUTION WIDTH 17.4 % (9.0-15.0)
[2021-08-20 06:57] LABS: ANION GAP 11 (5-15); CALCIUM 8.5 mg/dL (8.4-11.0); CHLORIDE 112 mmol/L (98-107); CREATININE 1.81 mg/dL (0.55-1.30); GLUCOSE 97 mg/dL (70-99); POTASSIUM 4.6 mmol/L (3.5-5.1); SODIUM SERUM 141 mmol/L (136-145); UREA NITROGEN, BLOOD 35 mg/dL (8-21)
--- NOTE | 2021-08-20 07:01 | NUR ---
Handoff with patient day team registered nurse, Farheen. Nazario Allen RN
--- NOTE | 2021-08-20 07:35 | NUR ---
OPENING NOTE Patient is in bed resting with eyes closed. Patient is audibly wheezy, respiratory at bedside to provide a breathing treatment. Patient has removed her IV access, no bleeding noted but there is some swelling at the site where the IV infiltrated. All needs met at this time, safety checks made. Will continue to monitor.
[2021-08-20] MEDS: ALBUTEROL SULFATE 0.083% 2.5 MG/3 ML VIAL.NEB INH PRN ×2 (07:51→14:47)
[2021-08-20 08:00] VITALS: BP_SYST 161
[2021-08-20] MEDS: FLUoxetine HCL 10 MG CAPSULE (PROzac) PO SCH (08:25)
[2021-08-20] MEDS: DIAMOX SEQUELS 500 MG CAPSULE.SA PO SCH (08:25)
[2021-08-20] MEDS: HEPARIN SODIUM,PORCINE 5,000 UNITS/ML VIAL SUBCUT SCH (08:28)
[2021-08-20 08:35] VITALS: BP_SYST 156
[2021-08-20] MEDS ORDERED: AZITHROMYCIN 250 MG TABLET PO SCH (09:00)
[2021-08-20] MEDS: NACL 0.9% 1,000 ML IV SCH (09:01)
--- NOTE | 2021-08-20 09:18 | NUR ---
UP WITH PHYSICAL THERAPY Patient is working with physical therapy, able to get out of bed and ambulate out of the room with assistance and the use of a walker. Patient's oxygen saturation went from 99 to 93 while ambulating as reported by the physical therapist. Patient is back in bed, safety checks made.
[2021-08-20 11:07] VITALS: BP_SYST 145
[2021-08-20] MEDS: cefTRIAXone 1 GM in D5W 50 ML IV SCH (14:36)
--- NOTE | 2021-08-20 14:45 | NUR ---
BREATHING TREATMENT Patient is audibly wheezing, called for a breathing treatment for the patient. After the treatment, patient is still wheezing with no change. Oxygen saturation is 98%. Paging MD to let him know, awaiting call back.
--- NOTE | 2021-08-20 14:57 | NUR ---
SPOKE TO MD Informed MD about the patient's wheezing. New order received, confirmed that it is okay to discharge patient back to board and care after her treatment.
--- NOTE | 2021-08-20 15:10 | NUR ---
SPOKE TO DAUGHTER Spoke to daughter, Rufina, and informed her that her mother was cleared for discharge back to the board and care with new prescriptions.
[2021-08-20 16:08] VITALS: BP_SYST 109
[2021-08-20] MEDS ORDERED: FLO44 INH (16:10)
[2021-08-20 16:28] VITALS: BP_SYST 109
--- NOTE | 2021-08-20 17:05 | NUR ---
D/C Patient Patient and her daughter Rufina given medication reconciliation form and D/C instructions. Exit Care provided. Patient verbalized understanding. MD discussed with patient the results and treatment provided. Ambulatory with assist for discharge to home and board and care. Patient in stable condition, ID band removed. IV catheter removed, intact and dressing applied, no active bleeding. Patient educated on pain management. All belongings sent with patient.
[2021-08-20] MEDS ORDERED: BUDESONIDE 0.5 MG/2 ML AMPUL.NEB INH SCH (19:00)
[2021-08-20] MEDS ORDERED: ALBUTEROL SULFATE 0.083% 2.5 MG/3 ML VIAL.NEB INH SCH (19:00)
== END 2021-08-20 17:05 | disposition home health service (06) | DRG 56 ==
LOC: SED 17:00 → STU 19:58 → SMU 08-20 12:01
PROVIDERS: ADMIT Internal Medicine Hospice and Palliative Medicine; ATTEND Internal Medicine Hospice and Palliative Medicine
DX: G30.9 Alzheimer's disease, unspecified (principal); N17.0 Acute kidney failure with tubular necrosis; E44.1 Mild protein-calorie malnutrition; F02.80 Dementia in other diseases classified elsewhere, unspecified severity, without behavioral disturbance, psychotic disturbance, mood disturbance, and anxiety; D63.8 Anemia in other chronic diseases classified elsewhere; E78.5 Hyperlipidemia, unspecified; F32.A Depression, unspecified; G89.29 Other chronic pain; Z20.822 Contact with and (suspected) exposure to COVID-19; I10 Essential (primary) hypertension; Z87.891 Personal history of nicotine dependence; Z88.1 Allergy status to other antibiotic agents; Z79.899 Other long term (current) drug therapy; Z85.528 Personal history of other malignant neoplasm of kidney; Z68.24 Body mass index [BMI] 24.0-24.9, adult
CPT/HCPCS: 36415; 70450-TC; 71045; 76376; 80048; 80053; 80307; 81000; 82009; 82140; 83036; 83605; 83735; 83880; 84443; 85025; 86140; 87040; 92610-GN; 93005; 94640; 96361; 96374; 96375; 97110-GP; 97116-GP; 97530-GP; 99285; G0378; G0480; G0481; G0482; J0696; J1644; J2060; J7060; J7613; Q0144